=== PATIENT | female | born 1995 | race Two or more races ===

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

== ENCOUNTER 2019-02-27 20:00 | Emergency (ER) | payer OTHER ==
[~2019-02-27] VITALS: Ht 152.4 cm; Wt 47.2 kg
[2019-02-27] MEDS ORDERED: FAMOTIDINE 20 MG/2 ML VIAL IVP ONE (20:45)
[2019-02-27] MEDS ORDERED: IV NORMAL SALINE 1000ML BAG 1,000 ML IV ONE (20:45)
[2019-02-27] MEDS ORDERED: KETOROLAC 30 MG/ML VIAL. IV ONE (20:45)
[2019-02-27] MEDS ORDERED: KETOROLAC 15 MG/ML VIAL. IV ONE (20:45)
[2019-02-27 20:55] LABS: BILIRUBIN,URINE NEGATIVE (NEG); CLARITY,URINE CLEAR; COLOR,URINE YELLOW; NITRITE,URINE NEGATIVE (NEG); PROTEIN,URINE NEGATIVE (NEG-TRACE); UROBILINOGEN,URINE 0.2 mg/dL (0.2 mg/dL)
[2019-02-27 20:59] LABS: SQUAMOUS EPITHELIAL CELL,UR FEW /LPF
[2019-02-27 21:00] LABS: BACTERIA,URINE FEW /HPF (0-FEW); WBC,URINE 20-40 /HPF (0-4)
[2019-02-27 21:10] LABS: BASO % 0 % (0-3); EOS # 0.3 x10^3/uL (0.0-0.7); EOS % 4 % (0-3); HEMATOCRIT 35.9 % (36.0-47.0); HEMOGLOBIN 12.1 g/dL (12.0-15.5); LYMPH # 1.7 x10^3/uL (1.0-4.8); LYMPH % 24 % (24-48); MEAN CORPUSCULAR HEMOGLOBIN 29 pg (25-35); MEAN CORPUSCULAR HGB CONC 34 g/dL (31-37); MEAN CORPUSCULAR VOLUME 86 fL (79-100); MONO # 0.6 x10^3/uL (0.0-1.1); MONO % 8 % (0-9); NEUT # 4.6 x10^3/uL (1.8-7.7); NEUT % 64 % (31-73); PLATELET COUNT 120 x10^3/uL (140-400); RED CELL DISTRIBUTION WIDTH 14.2 % (11.5-14.5); WHITE BLOOD COUNT 7.3 x10^3/uL (4.0-11.0)
[2019-02-27 21:18] LABS: CALCIUM 9.5 mg/dL (8.5-10.1); CREATININE 0.7 mg/dL (0.6-1.0); GFR 105.6; POTASSIUM 3.6 mmol/L (3.5-5.1)
[2019-02-27 21:23] LABS: ALBUMIN 3.7 g/dL (3.4-5.0); ALBUMIN/GLOBULIN RATIO 0.9 (1.0-1.7); TOTAL BILIRUBIN 0.2 mg/dL (0.2-1.0); TOTAL PROTEIN 7.6 g/dL (6.4-8.2)
[2019-02-27] MEDS ORDERED: cefTRIAXone IV Push 1 GM VIAL. IVP ONE (22:00)
--- NOTE | 2019-02-27 22:19 | RAD ---
Examination: CT ABDOMEN PELVIS WO CONTRAST History: Bilateral flank pain Comparison/Correlation: None Findings: Axial images of the abdomen and pelvis were obtained without contrast. Sagittal and coronal reformatted images were provided. Visualized lung bases are clear. Unenhanced liver, spleen, pancreas, and adrenal glands are unremarkable. No radiopaque collecting system calculi or evidence of collecting system obstruction. Large quantity of stool is noted involving the colon. Appendix is normal. Left adnexal follicles are present in appearance. No extraluminal gas. No bowel obstruction. Retained contrast involving the distal ileum appears to be present. Sacralization of L5 is noted. Impression: No radiopaque collecting system calculi or evidence of obstruction. PQRS Compliance Statement: One or more of the following individualized dose reduction techniques were utilized for this examination: 1. Automated exposure control 2. Adjustment of the mA and/or kV according to patient size 3. Use of iterative reconstruction technique Electronically signed by: Real Rod MD (02/27/2019 10:16 PM) [facility]
[2019-02-27] MEDS ORDERED: CEPH-264 PO (22:24)
[2019-02-27] MEDS ORDERED: PHEN-318 PO (22:24)
--- NOTE | 2019-02-27 22:25 | PHYS DOC ---
Past Medical History Past Medical History: No Pertinent History Past Surgical History: No Surgical History Additional Information: Nonsmoker Alcohol Use: None Drug Use: None Adult General Chief Complaint Chief Complaint: FLANK PAIN HPI HPI 23 y/o female presents with 3 day history of lower abdominal pain which has now progressed to bilateral flank pain (R>L). Denies fever/chills. Reports some associated nausea and diarrhea. Denies known sick contacts. Denies . Denies vaginal bleeding or discharge. Denies rash. Denies trauma. Denies hematuria but reports some increased urinary frequency. Review of Systems Review of Systems Constitutional: Denies fever or chills Eyes: Denies redness or eye pain HENT: Denies nasal congestion or sore throat Respiratory: Denies cough or shortness of breath Cardiovascular: Denies chest pain or palpitations GI: Reports lower abdominal pain, nausea, and diarrhea; denies vomiting : Denies dysuria or hematuria Musculoskeletal: Reports flank pain; denies joint pain Integument: Denies rash or skin lesions Neurologic: Denies headache, focal weakness or sensory changes Complete systems were reviewed and found to be within normal limits, except as documented in this note. Current Medications Current Medications Current Medications Medications (Trade) Dose Ordered Sig/[facility] Start Time Stop Time Status Last Admin Dose Admin Ceftriaxone Sodium (Rocephin) 1 gm 1X ONCE 02/27/19 22:00 02/27/19 22:01 DC 02/27/19 22:13 1 GM Famotidine (Pepcid Vial) 20 mg 1X ONCE 02/27/19 20:45 02/27/19 20:54 DC 02/27/19 21:19 20 MG Ketorolac Tromethamine (Toradol 15mg Vial) 15 mg 1X ONCE 02/27/19 20:45 02/27/19 20:55 DC 02/27/19 21:19 15 MG Ketorolac Tromethamine (Toradol 30mg Vial) 15 mg 1X ONCE 02/27/19 20:45 02/27/19 20:46 Cancel Sodium Chloride 1,000 ml @ 1,000 mls/hr 1X ONCE 02/27/19 20:45 02/27/19 21:44 DC 02/27/19 21:19 1,000 MLS/HR Allergies Allergies Allergies Coded Allergies Type Severity Reaction Last Updated Verified No Known Drug Allergies 07/28/16 No Physical Exam Physical Exam Constitutional: Well developed, well nourished, no acute distress, non-toxic appearance HENT: Normocephalic, atraumatic, oropharynx moist Eyes: Conjunctiva normal, no discharge Neck: Normal range of motion, no tenderness, supple Cardiovascular: Heart rate normal, regular rhythm Lungs & Thorax: Bilateral breath sounds clear to auscultation, no wheezing Abdomen: Soft, mild suprapubic tenderness and RLQ Skin: Warm, dry, no erythema, no rash Back: No midline tenderness, bilateral (R>L) CVA tenderness Extremities: No tenderness, ROM intact, no edema Neurologic: Alert and oriented X 3, no focal deficits noted Psychologic: Affect normal, judgement normal Current Patient Data Vital Signs Vital Signs Date Time Temp Pulse Resp B/P (MAP) Pulse Ox O2 Delivery O2 Flow Rate FiO2 02/27/19 23:59 79 16 106/72 (83) 99 Room Air 02/27/19 20:04 98.1 98.1 Lab Values Laboratory Tests Test 02/27/19 20:13 02/27/19 20:16 02/27/19 21:05 Urine Collection Type Unknown Urine Color Yellow Urine Clarity Clear Urine pH 6.0 Urine Specific [place] 1.010 Urine Protein Negative mg/dL (NEG-TRACE) Urine Glucose (UA) Negative mg/dL (NEG) Urine Ketones (Stick) Negative mg/dL (NEG) Urine Blood Trace (NEG) Urine Nitrite Negative (NEG) Urine Bilirubin Negative (NEG) Urine Urobilinogen Dipstick 0.2 mg/dL (0.2 mg/dL) Urine Leukocyte Esterase Moderate (NEG) Urine RBC 11-20 /HPF (0-2) Urine WBC 20-40 /HPF (0-4) Urine Squamous Epithelial Cells Few /LPF Urine Bacteria Few /HPF (0-FEW) Urine Mucus Mod /LPF POC Urine HCG, Qualitative Hcg negative (Negative) White Blood Count 7.3 x10^3/uL (4.0-11.0) Red Blood Count 4.20 x10^6/uL (3.50-5.40) Hemoglobin 12.1 g/dL (12.0-15.5) Hematocrit 35.9 % (36.0-47.0) L Mean Corpuscular Volume 86 fL (79-100) Mean Corpuscular Hemoglobin 29 pg (25-35) Mean Corpuscular Hemoglobin Concent 34 g/dL (31-37) Red Cell Distribution Width 14.2 % (11.5-14.5) Platelet Count 120 x10^3/uL (140-400) L Neutrophils (%) (Auto) 64 % (31-73) Lymphocytes (%) (Auto) 24 % (24-48) Monocytes (%) (Auto) 8 % (0-9) Eosinophils (%) (Auto) 4 % (0-3) H Basophils (%) (Auto) 0 % (0-3) Neutrophils # (Auto) 4.6 x10^3/uL (1.8-7.7) Lymphocytes # (Auto) 1.7 x10^3/uL (1.0-4.8) Monocytes # (Auto) 0.6 x10^3/uL (0.0-1.1) Eosinophils # (Auto) 0.3 x10^3/uL (0.0-0.7) Basophils # (Auto) 0.0 x10^3/uL (0.0-0.2) Sodium Level 141 mmol/L (136-145) Potassium Level 3.6 mmol/L (3.5-5.1) Chloride Level 107 mmol/L (98-107) Carbon Dioxide Level 27 mmol/L (21-32) Anion Gap 7 (6-14) Blood Urea Nitrogen 9 mg/dL (7-20) Creatinine 0.7 mg/dL (0.6-1.0) Estimated GFR (Cockcroft-Gault) 105.6 BUN/Creatinine Ratio 13 (6-20) Glucose Level 102 mg/dL (70-99) H Calcium Level 9.5 mg/dL (8.5-10.1) Magnesium Level 2.0 mg/dL (1.8-2.4) Total Bilirubin 0.2 mg/dL (0.2-1.0) Aspartate Amino Transferase (AST) 18 U/L (15-37) Alanine Aminotransferase (ALT) 25 U/L (14-59) Alkaline Phosphatase 59 U/L (46-116) Total Protein 7.6 g/dL (6.4-8.2) Albumin 3.7 g/dL (3.4-5.0) Albumin/Globulin Ratio 0.9 (1.0-1.7) L Lipase 330 U/L (73-393) Laboratory Tests 02/27/19 21:05 Laboratory Tests 02/27/19 21:05 EKG EKG [] Radiology/Procedures Radiology/Procedures PROCEDURE: CT ABDOMEN PELVIS WO CONTRAST Examination: CT ABDOMEN PELVIS WO CONTRAST History: Bilateral flank pain Comparison/Correlation: None Findings: Axial images of the abdomen and pelvis were obtained without contrast. Sagittal and coronal reformatted images were provided. Visualized lung bases are clear. Unenhanced liver, spleen, pancreas, and adrenal glands are unremarkable. No radiopaque collecting system calculi or evidence of collecting system obstruction. Large quantity of stool is noted involving the colon. Appendix is normal. Left adnexal follicles are present in appearance. No extraluminal gas. No bowel obstruction. Retained contrast involving the distal ileum appears to be present. Sacralization of L5 is noted. Impression: No radiopaque collecting system calculi or evidence of obstruction. PQRS Compliance Statement: One or more of the following individualized dose reduction techniques were utilized for this examination: 1. Automated exposure control 2. Adjustment of the mA and/or kV according to patient size 3. Use of iterative reconstruction technique Electronically signed by: Real Rod MD (02/27/2019 10:16 PM) [facility] Course & Med Decision Making Course & Med Decision Making Pertinent Labs and Imaging studies reviewed. (See chart for details) Patient presents with lower abdominal pain which has progressed to bilateral flank pain. Concern for infectious process. UA with signs of infection. Empiric antibiotics given. BUN/Creat stable. CT abd/pelvis without acute process. Patient stable for discharge with outpatient follow-up with PCP. Discussed findings and plan with patient and family, who acknowledge understanding and agreement. Dragon Disclaimer Dragon Disclaimer This electronic medical record was generated, in whole or in part, using a voice recognition dictation system. Departure Departure Impression: Primary Impression: Pyelonephritis Disposition: 01 HOME, SELF-CARE Condition: STABLE Referrals: TORSTEN BLANCO MD (PCP) Patient Instructions: Pyelonephritis, Adult, [id number] Additional Instructions: Use over the counter Tylenol and Ibuprofen for pain or discomfort. Scripts Phenazopyridine Hcl (PYRIDIUM) 200 Mg Tablet 200 MG PO TID PRN for DYSURIA, #6 TAB Prov: MICHEL BERRIOS DO 02/27/19 Cephalexin (KEFLEX) 500 Mg Capsule 500 MG PO TID for 7 Days, #21 CAP Prov: MICHEL BERRIOS DO 02/27/19 MICHEL BERRIOS DO Feb 27, 2019 22:25
[2019-02-27 23:59] VITALS: BP 106/72
== END 2019-02-27 23:59 | disposition home or self-care (01) ==
LOC: ER 20:00
DX: N12 Tubulo-interstitial nephritis, not specified as acute or chronic (principal); R19.7 Diarrhea, unspecified; R11.0 Nausea
CPT/HCPCS: 36415; 74176; 80053; 81001; 81025; 83690; 83735; 85025; 87086; 96361; 96374; 96375; 99285; J0696; J1885; J3490; J7030